=== PATIENT | female | born 1935 | race Caucasian/White ===

== ENCOUNTER 2021-05-01 18:56 | Inpatient (IN) ==
[2021-05-01] MEDS ORDERED: *HR* HYDROcodone/Acet 5/325 mg TABLET PO ONE (20:40)
[2021-05-01] MEDS ORDERED: Ondansetron ODT 4 MG TAB.RAPDIS SL ONE (21:24)
[2021-05-01] MEDS ORDERED: Ondansetron 4 MG/2 ML VIAL IVP ONE (21:24)
[2021-05-01] MEDS ORDERED: *HR* FentaNYL (PF) 100 MCG/2 ML VIAL IVP ONE ×2 (22:01→22:53)
[2021-05-01 22:40] LABS: Basophils % 0.3 %; Eosinophils # 0.1 K/mcL (0.0-0.6); Hematocrit 44.5 % (35.3-44.9); Hemoglobin 14.2 g/dL (11.5-15.4); Immature Granulocytes % 0.5 % (0-4); Lymphocytes # 1.1 K/mcL (0.6-4.6); Lymphocytes % 10.8 %; Mean Corpuscular HGB Conc 31.9 g/dL (31.6-35.5); Mean Platelet Volume 10.6 fL (9.4-12.4); Monocytes # 0.5 K/mcL (0.0-1.3); Monocytes % 4.6 %; Neutrophils # 8.7 K/mcL (1.6-8.9); Platelet Count 172 K/mcL (140-400); Red Blood Count 4.89 M/mcL (3.82-4.97); Red Cell Distribution Width 15.2 % (11.5-14.5); Segmented Neutrophils % 82.8 %; White Blood Count 10.5 K/mcL (4.3-11.1)
[2021-05-01 22:56] LABS: BUN/Creatinine Ratio 16 (6-26); Blood Urea Nitrogen 15 mg/dL (8-23); Calcium 9.7 mg/dL (8.6-10.3); Carbon Dioxide 26 mEq/L (23-29); Chloride 105 mEq/L (98-107); Glucose 106 mg/dL (70-105); Osmolality,Calculated 289 (280-300); Potassium 3.9 mEq/L (3.5-5.1); Sodium 139 mEq/L (136-145); eGFR For African Americans > 60 (> 60); eGFR For Non-African Americans 59 (> 60)
[2021-05-02] MEDS ORDERED: Naloxone 0.4 MG/ML INJ IVP PRN (00:49)
[2021-05-02] MEDS ORDERED: *HR* Promethazine 25 MG/ML VIAL IM PRN (00:49)
[2021-05-02 02:56] LABS: Influenza A PCR Negative (Negative); Influenza B PCR Negative (Negative); Resp. Syncytial Virus PCR Negative (Negative)
[2021-05-02 03:10] LABS: SARS-CoV-2 by PCR (In House) Negative (Negative)
[2021-05-02] MEDS: Ketorolac 15 MG/ML VIAL IVP PRN ×2 (03:21→22:22)
[2021-05-02 06:02] LABS: Basophils % 0.4 %; Eosinophils # 0.1 K/mcL (0.0-0.6); Eosinophils % 1.4 %; Hematocrit 38.7 % (35.3-44.9); Hemoglobin 12.4 g/dL (11.5-15.4); Immature Granulocytes % 0.2 % (0-4); Lymphocytes # 0.7 K/mcL (0.6-4.6); Lymphocytes % 6.9 %; Mean Corpuscular Volume 90.4 fL (83.0-100.0); Mean Platelet Volume 10.5 fL (9.4-12.4); Monocytes # 0.4 K/mcL (0.0-1.3); Monocytes % 4.2 %; Neutrophils # 8.5 K/mcL (1.6-8.9); Platelet Count 174 K/mcL (140-400); Red Blood Count 4.28 M/mcL (3.82-4.97); Red Cell Distribution Width 15.1 % (11.5-14.5); Segmented Neutrophils % 86.9 %; White Blood Count 9.7 K/mcL (4.3-11.1)
[2021-05-02 06:11] LABS: INR 1.1; Prothrombin Time 12.7 Seconds (9.4-12.1)
[2021-05-02 06:26] LABS: BUN/Creatinine Ratio 14 (6-26); Blood Urea Nitrogen 13 mg/dL (8-23); Carbon Dioxide 26 mEq/L (23-29); Chloride 107 mEq/L (98-107); Glucose 119 mg/dL (70-105); Osmolality,Calculated 289 (280-300); Potassium 4.2 mEq/L (3.5-5.1); Sodium 139 mEq/L (136-145); eGFR For African Americans > 60 (> 60); eGFR For Non-African Americans 59 (> 60)
[2021-05-02] MEDS: Ondansetron ODT 4 MG TAB.RAPDIS SL PRN (06:31)
[2021-05-02] MEDS ORDERED: Morphine Sulfate 2 MG/ML SYRINGE IVP ONE (12:32)
[2021-05-02] MEDS ORDERED: Saliva Stimulant 44.3ml BOTTLE PO PRN (12:33)
[2021-05-02] MEDS ORDERED: *HR* Propofol 200 MG/20 ML VIAL IVP ONE (15:03)
[2021-05-02] MEDS ORDERED: *HR* FentaNYL (PF) 100 MCG/2 ML VIAL ONE (15:03)
[2021-05-02 15:21] LABS: Hematocrit 38.6 % (35.3-44.9); Hemoglobin 12.2 g/dL (11.5-15.4)
[2021-05-02] MEDS ORDERED: Promethazine 6.25 MG in Water for inj. (sterile) 20 ML IVPB PRN (15:36)
[2021-05-02] MEDS ORDERED: *HR* FentaNYL (PF) 100 MCG/2 ML VIAL IVP PRN (15:36)
[2021-05-02] MEDS ORDERED: *HR* HYDROmorphone PF 0.5 MG/0.5 ML SYRINGE IVP PRN (15:36)
[2021-05-02] MEDS ORDERED: Acetaminophen IV 1,000 MG/100 ML BAG IVPB ONE (15:36)
[2021-05-02] MEDS ORDERED: Ondansetron 4 MG/2 ML VIAL ONE (16:27)
[2021-05-02] MEDS ORDERED: Lidocaine/EPI 1:100k 1% 50 ML VIAL ONE (16:45)
[2021-05-02] MEDS ORDERED: Lidocaine -MPF 2% 2 ML VIAL ONE (16:47)
[2021-05-02] MEDS ORDERED: Ketorolac 30 MG/ML VIAL ONE (16:48)
[2021-05-03] MEDS: CeFAZolin 2 GM/120 ML BAG IVPB SCH ×2 (00:55→08:17)
[2021-05-03] MEDS: Ketorolac 15 MG/ML VIAL IVP PRN ×2 (04:34→14:51)
[2021-05-03] MEDS: Vitamin E 200 UNIT (90MG) CAPSULE PO SCH (08:16)
[2021-05-03] MEDS: Valsartan 160 MG TABLET PO SCH (08:16)
[2021-05-03] MEDS: Aspirin Enteric Coated 325 MG Tablet PO SCH (08:16)
[2021-05-03] MEDS: Cyanocobalamin (B-12) 1,000 MCG TABLET PO SCH (08:17)
[2021-05-03] MEDS: FLUoxetine 20 MG CAPSULE PO SCH (08:17)
[2021-05-03] MEDS: Cholecalciferol (D-3) 1,000 UNIT (25MCG) TABLET PO SCH (08:17)
[2021-05-03 10:23] LABS: Hematocrit 36.9 % (35.3-44.9); Hemoglobin 11.7 g/dL (11.5-15.4); Mean Corpuscular HGB Conc 31.7 g/dL (31.6-35.5); Mean Corpuscular Volume 91.3 fL (83.0-100.0); Mean Platelet Volume 10.5 fL (9.4-12.4); Platelet Count 183 K/mcL (140-400); Red Blood Count 4.04 M/mcL (3.82-4.97); White Blood Count 9.3 K/mcL (4.3-11.1)
[2021-05-03 10:43] LABS: Calcium 8.9 mg/dL (8.6-10.3); Potassium 4.1 mEq/L (3.5-5.1)
[2021-05-03] MEDS ORDERED: Melatonin 3 MG TABLET PO PRN (13:36)
[2021-05-04 01:44] LABS: Hematocrit 33.7 % (35.3-44.9); Hemoglobin 10.8 g/dL (11.5-15.4); Mean Corpuscular Hemoglobin 29.3 pg (28.0-33.3); Mean Corpuscular Volume 91.6 fL (83.0-100.0); Mean Platelet Volume 10.8 fL (9.4-12.4); Platelet Count 148 K/mcL (140-400); Red Blood Count 3.68 M/mcL (3.82-4.97); White Blood Count 6.9 K/mcL (4.3-11.1)
[2021-05-04 02:08] LABS: Calcium 9.1 mg/dL (8.6-10.3); Phosphorous 2.1 mg/dL (2.7-4.5); Potassium 3.8 mEq/L (3.5-5.1)
[2021-05-04 02:28] LABS: Folate 11.9 ng/mL (3.0-16.0)
[2021-05-04] MEDS ORDERED: Iron Sucrose Complex 400 MG in 0.9 % Sodium Chloride 250 ML IVPB ONE (07:50)
[2021-05-04] MEDS: Aspirin Enteric Coated 325 MG Tablet PO SCH (09:14)
[2021-05-04] MEDS: Cholecalciferol (D-3) 1,000 UNIT (25MCG) TABLET PO SCH (09:14)
[2021-05-04] MEDS: Multivit/Ca/Min/Fe/FA 1 TAB TABLET PO SCH (09:14)
[2021-05-04] MEDS: Vitamin E 200 UNIT (90MG) CAPSULE PO SCH (09:14)
[2021-05-04] MEDS: FLUoxetine 20 MG CAPSULE PO SCH (09:15)
[2021-05-04] MEDS: Valsartan 160 MG TABLET PO SCH (09:15)
[2021-05-04] MEDS: Cyanocobalamin (B-12) 1,000 MCG TABLET PO SCH (09:15)
[2021-05-04 12:06] LABS: Hematocrit 31.4 % (35.3-44.9); Hemoglobin 10.2 g/dL (11.5-15.4)
[2021-05-05 01:03] LABS: Hematocrit 29.5 % (35.3-44.9); Hemoglobin 9.8 g/dL (11.5-15.4); Mean Corpuscular HGB Conc 33.2 g/dL (31.6-35.5); Mean Corpuscular Hemoglobin 29.7 pg (28.0-33.3); Mean Corpuscular Volume 89.4 fL (83.0-100.0); Mean Platelet Volume 10.5 fL (9.4-12.4); Platelet Count 139 K/mcL (140-400); Red Cell Distribution Width 14.9 % (11.5-14.5); White Blood Count 5.6 K/mcL (4.3-11.1)
[2021-05-05 01:24] LABS: BUN/Creatinine Ratio 28 (6-26); Blood Urea Nitrogen 22 mg/dL (8-23); Calcium 8.6 mg/dL (8.6-10.3); Carbon Dioxide 25 mEq/L (23-29); Chloride 105 mEq/L (98-107); Glucose 102 mg/dL (70-105); Osmolality,Calculated 290 (280-300); Phosphorous 2.8 mg/dL (2.7-4.5); Potassium 3.8 mEq/L (3.5-5.1); Sodium 138 mEq/L (136-145); eGFR For African Americans > 60 (> 60); eGFR For Non-African Americans > 60 (> 60)
[2021-05-05] MEDS: Vitamin E 200 UNIT (90MG) CAPSULE PO SCH (07:48)
[2021-05-05] MEDS: Valsartan 160 MG TABLET PO SCH (07:48)
[2021-05-05] MEDS: Multivit/Ca/Min/Fe/FA 1 TAB TABLET PO SCH (07:48)
[2021-05-05] MEDS: Aspirin Enteric Coated 325 MG Tablet PO SCH (07:48)
[2021-05-05] MEDS: Cyanocobalamin (B-12) 1,000 MCG TABLET PO SCH (07:48)
[2021-05-05] MEDS: FLUoxetine 20 MG CAPSULE PO SCH (07:49)
[2021-05-05] MEDS: Cholecalciferol (D-3) 1,000 UNIT (25MCG) TABLET PO SCH (07:49)
[2021-05-06 05:11] LABS: Hematocrit 30.2 % (35.3-44.9); Hemoglobin 9.6 g/dL (11.5-15.4); Mean Corpuscular HGB Conc 31.8 g/dL (31.6-35.5); Mean Corpuscular Hemoglobin 28.7 pg (28.0-33.3); Mean Corpuscular Volume 90.1 fL (83.0-100.0); Mean Platelet Volume 10.7 fL (9.4-12.4); Platelet Count 156 K/mcL (140-400); Red Blood Count 3.35 M/mcL (3.82-4.97); White Blood Count 5.3 K/mcL (4.3-11.1)
[2021-05-06 05:32] LABS: BUN/Creatinine Ratio 25 (6-26); Blood Urea Nitrogen 19 mg/dL (8-23); Calcium 8.8 mg/dL (8.6-10.3); Carbon Dioxide 27 mEq/L (23-29); Chloride 104 mEq/L (98-107); Glucose 101 mg/dL (70-105); Magnesium 1.9 mg/dL (1.6-2.6); Osmolality,Calculated 286 (280-300); Phosphorous 2.3 mg/dL (2.7-4.5); Potassium 3.8 mEq/L (3.5-5.1); Sodium 137 mEq/L (136-145); eGFR For African Americans > 60 (> 60); eGFR For Non-African Americans > 60 (> 60)
[2021-05-06] MEDS: Multivit/Ca/Min/Fe/FA 1 TAB TABLET PO SCH (08:26)
[2021-05-06] MEDS: Cholecalciferol (D-3) 1,000 UNIT (25MCG) TABLET PO SCH (08:26)
[2021-05-06] MEDS: Valsartan 160 MG TABLET PO SCH (08:26)
[2021-05-06] MEDS: Vitamin E 200 UNIT (90MG) CAPSULE PO SCH (08:26)
[2021-05-06] MEDS: Aspirin Enteric Coated 325 MG Tablet PO SCH (08:26)
[2021-05-06] MEDS: FLUoxetine 20 MG CAPSULE PO SCH (08:26)
[2021-05-06] MEDS: Cyanocobalamin (B-12) 1,000 MCG TABLET PO SCH (08:28)
[2021-05-06 10:23] LABS: Adenovirus Not Detected (Not Detect); Bordetella Pertussis Not Detected (Not Detect); Chlamydophila pneumoniae Not Detected (Not Detect); Coronavirus 229E Not Detected (Not Detect); Coronavirus HKU1 Not Detected (Not Detect); Coronavirus NL63 Not Detected (Not Detect); Coronavirus OC43 Not Detected (Not Detect); Human Metapneumovirus Not Detected (Not Detect); Human Rhinovirus/Enterovirus Not Detected (Not Detect); Influenza A Subtype 2009 H1 Not Detected (Not Detect); Influenza B Not Detected (Not Detect); Mycoplasma pneumoniae Not Detected (Not Detect); Parainfluenza Virus 1 Not Detected (Not Detect); Parainfluenza Virus 2 Not Detected (Not Detect); Parainfluenza Virus 3 Not Detected (Not Detect); Parainfluenza Virus 4 Not Detected (Not Detect); Respiratory Syncytial Virus Not Detected (Not Detect); SARS-CoV-2 Not Detected (Not Detect)
[2021-05-06 11:05] VITALS: BP 143/87; PULSE 79; TEMP 98.1; O2SAT 94
[2021-05-06] MEDS: Ondansetron ODT 4 MG TAB.RAPDIS SL PRN (12:41)
== END 2021-05-06 14:00 | disposition other institution (70) | DRG 481 ==
LOC: EMEROOARM 18:56 → 3NENU 18:56 → SUATTDRO 23:49 → 3NENU 05-02 00:58
PROVIDERS: ADMIT Internal Medicine; ATTEND Internal Medicine